=== PATIENT | female | born 1975 | race African-American/Black ===

== ENCOUNTER → 2020-05-13 | Outpatient (CLI) | payer OTHER ==
--- NOTE | 2020-05-13 10:42 | REP ---
INDICATION: CHRONIC RHINITIS. COMPARISON: NONE. TECHNIQUE: Helical scanning is acquired and 2 mm axial images re-formatted. Coronal MPR images are generated and reviewed. FINDINGS: Digital preliminary senior facilities manager views are unremarkable. Frontal sinuses are clear. There is no evidence of ethmoid or sphenoid sinus opacification or mucosal thickening. Maxillary sinuses show no evidence of mucosal thickening. Ostiomeatal complexes are patent. Mastoid aeration is normal and symmetric. The bony nasal septum is essentially in the midline. Nasal turbinates soft tissues are unremarkable. Nasal ethmoid recesses are patent. No intraorbital abnormality is seen. Visualized intracranial structures are unremarkable. Normal sized upper cervical lymph nodes are noted. IMPRESSION: Unremarkable maxillofacial CT study. No CT evidence of paranasal sinus disease. <Electronically signed by Jasbir Myers > 05/13/20 [id number]
== END ==
LOC: M RAD 10:16
PROVIDERS: ATTEND Specialist
DX: J31.0 Chronic rhinitis (principal); J34.2 Deviated nasal septum

== ENCOUNTER 2020-10-16 07:20 | Day surgery (SDC) | payer OTHER ==
[~2020-10-16] VITALS: Ht 162.6 cm; Wt 70.3 kg
[~2020-10-16 07:20] MED LIST: ACETAMINOPHEN 650 MG SUPP PR ONE; LORA-753 PO; LR 1,000 ML IV ONE
[2020-10-16] MEDS ORDERED: KETOROLAC 60MG 2ML VIAL As Ordered ONE (07:59)
[2020-10-16] MEDS ORDERED: SUGAMMADEX SODIUM 500 MG/5 ML VIAL (BRIDION) As Ordered ONE (07:59)
[2020-10-16] MEDS ORDERED: ONDANSETRON 4MG/2ML VIAL As Ordered ONE (07:59)
[2020-10-16] MEDS ORDERED: dexameTHASONE 4 MG/ML 1ML VIAL (J1100 PER 1MG) As Ordered ONE (07:59)
[2020-10-16] MEDS ORDERED: propofoL 200 MG/20 ML VIAL As Ordered ONE (07:59)
[2020-10-16] MEDS ORDERED: ROCURONIUM BROMIDE 50 MG/5 ML VIAL As Ordered ONE (07:59)
[2020-10-16] MEDS ORDERED: ACETAMINOPHEN 1000MG 100ML IV BTL (OFIRMEV) (J0131 PER 10MG) As Ordered ONE (07:59)
[2020-10-16] MEDS ORDERED: LIDOCAINE 2% 100MG/5ML SDV (FOR ANES.) As Ordered ONE (07:59)
[2020-10-16] MEDS ORDERED: MIDAZOLAM INJ 2MG/2ML VIAL (J2250 PER 1MG) As Ordered ONE (08:00)
[2020-10-16] MEDS ORDERED: fentaNYL 100 MCG/2 ML INJECTION (J3010) As Ordered ONE ×2 (08:00→09:36)
[2020-10-16 08:05] LABS: BLOOD UREA NITROGEN 13 MG/DL (7-18); CALCIUM LEVEL 8.8 MG/DL (8.5-10.1); CARBON DIOXIDE LEVEL 31 MEQ/L (21-32); CHLORIDE LEVEL 105 MEQ/L (98-107); CREATININE FOR GFR 0.89 MG/DL (0.55-1.30); GLOMERULAR FILTRATION RATE > 60.0 (>58); GLUCOSE, FASTING 94 MG/DL (70-100); POTASSIUM SERUM 3.8 MEQ/L (3.5-5.1); SODIUM LEVEL 140 MEQ/L (136-145)
[2020-10-16 08:11] LABS: HEMATOCRIT 37.5 % (36.0-47.0); HEMOGLOBIN 12.4 g/dl (12.0-15.5); MEAN CORPUSCULAR HEMOGLOBIN 31.2 pg (27.0-33.0); MEAN CORPUSCULAR HGB CONC 33.1 g/dl (32.0-36.5); MEAN CORPUSCULAR VOLUME 94.5 fl (80.0-96.0); PLATELET COUNT, AUTOMATED 266 10^3/uL (150-450); RED BLOOD COUNT 3.97 10^6/uL (4.00-5.40); WHITE BLOOD COUNT 7.1 10^3/uL (4.0-10.0)
[2020-10-16] MEDS ORDERED: BUPIVACAINE HCL 0.5% 10ML VIAL As Ordered ONE (09:02)
[2020-10-16] MEDS ORDERED: ACETAMINOPHEN 650 MG SUPP As Ordered ONE (09:02)
[2020-10-16 11:40] VITALS: BP 110/72
--- NOTE | 2020-10-28 09:19 | RO ---
OPERATIVE NOTE DATE OF OPERATION: 10/16/2020 PREOPERATIVE DIAGNOSIS: Right lower quadrant pain, post hysterectomy 2016. POSTOPERATIVE DIAGNOSIS: Right lower quadrant pain, post hysterectomy 2016, massive ovarian sidewall adhesions. OPERATION PROPOSED: Operative laparoscopy, removal of adhesions. OPERATION PERFORMED: Operative laparoscopy, removal of adhesions. SURGEON: Jose Jean MD. VP ANCILLARY: Dr. Sewell for extraction, retraction, and visualization without which the procedure could not be completed. ANESTHESIA: General plus local anesthetic for intraperitoneal procedures. ESTIMATED BLOOD LOSS: Less than 25 mL. DESCRIPTION OF PROCEDURE: After adequate time out, prepped and draped in the lithotomy position. Amaya catheter in the bladder draining clear urine. Acetaminophen suppository 1300 mg per rectum. Sequentials in place. No antibiotics required. Small subumbilical incision was made. Veress needle was applied. 3.8 liters of CO2 at a flow rate of 3 to a pressure of 14. Direct entry into the abdomen. No evidence of perforation, hemorrhage, or bleeding. Interestingly, this lady had a laparoscopic hysterectomy at some point for abnormal uterine bleeding. The right upper quadrant was normal. The left upper quadrant was normal. The right and left round ligaments were normal. The cul-de-sac was clear. The left ovarian was normal. The right side, however, the right ovary was plastered to the sidewall of the pelvis, and just below that we could see the ureter moving clearly. With a 3 mm port on the right side and a 3 mm port on the left side, we attempted to pull away the ovary from the sidewall, but it was quite adherent, and, therefore, by blunt and sharp dissection we pulled off the ovary off the sidewall making sure to keep the ureter in visualization throughout the entire procedure. Once that was cleared, there was no evidence of active bleeding. We irrigated to make sure there was no bleeding and the ovary was free. She had one spot of endometriosis noted on the far right side of the bladder but nothing of significance anywhere else. With instrument and pad counts correct, ovaries appeared to be normal, ureters both sides were normal, deflated to 4 mm of pressure, removed the two 3 mm ports, removed the mainstem port, deflated to 0 pressure. Subcuticular stitches. Marcaine 0.25% to all three sites. Skin tapes were applied. Amaya catheter was removed. The end stage is that she has no other issues with right lower quadrant the surgery was successful. If she continues to persistently have right lower quadrant pain, the possibility of a right oophorectomy could be entertained, however, difficulty may be ensued because of the position of the ureter. This will be discussed with the patient at postop appointment. Patient was sent to recovery in good condition. Pilar Daley OB
== END 2020-10-16 11:41 | disposition home or self-care (01) ==
LOC: M SDC 07:20
PROVIDERS: ATTEND Obstetrics & Gynecology
DX: N73.6 Female pelvic peritoneal adhesions (postinfective) (principal)
CPT/HCPCS: 36415; 58660; 80048; 85027; J0131; J1100; J1885; J2250; J2405; J3010

== ENCOUNTER → 2021-04-28 | Outpatient (CLI) | payer OTHER ==
[~2021-04-28] MED LIST changes: -ACETAMINOPHEN 650 MG SUPP PR ONE; -LR 1,000 ML IV ONE
== END ==
LOC: M RAD 10:55
PROVIDERS: ATTEND Physician Assistant
DX: M79.604 Pain in right leg (principal); M79.605 Pain in left leg; R22.43 Localized swelling, mass and lump, lower limb, bilateral